=== PATIENT | female | born 1950 | race Caucasian/White ===

== ENCOUNTER → 2018-10-04 | Outpatient (CLI) | payer MEDICARE ==
[~2018-10-04] MED LIST: ALEN70TA6 PO; ALLO100T30 PO; ASPI-650 PO; BIOT1CAP3 PO; DIAZ5TAB PO; DOCU-131 PO; ENOX120S4 SQ; ERGO500017 PO; GABA300C10 PO; LISI1TAB5 PO; METO25TA35 PO; NAPR220T77 PO; OXYC-302 PO; REGADENOSON 0.4 MG/5 ML SYRINGE ONE; SIMV40TA3 PO; TRAM50TA2 PO; WARF1TAB PO; WARF7.5T PO-COUM
== END | disposition home or self-care (01) ==
LOC: CFH 12:47
PROVIDERS: ATTEND Family Medicine
DX: R94.31 Abnormal electrocardiogram [ECG] [EKG] (principal); I25.10 Atherosclerotic heart disease of native coronary artery without angina pectoris
CPT/HCPCS: 78452; 93017; A9502; J2785

== ENCOUNTER 2019-05-23 14:45 | Outpatient (CLI) | payer MEDICARE ==
[~2019-05-23 14:45] MED LIST changes: +LISI1TAB19 PO; -LISI1TAB5 PO; -REGADENOSON 0.4 MG/5 ML SYRINGE ONE; +SIMV40TA20 PO; -SIMV40TA3 PO
== END 2019-05-23 23:59 | disposition home or self-care (01) ==
LOC: CVU 14:45
PROVIDERS: ATTEND Internal Medicine Cardiovascular Disease
DX: I26.99 Other pulmonary embolism without acute cor pulmonale (principal); I11.9 Hypertensive heart disease without heart failure; E78.5 Hyperlipidemia, unspecified
CPT/HCPCS: 93306

== ENCOUNTER → 2019-10-02 | Outpatient (CLI) | payer MEDICARE ==
[~2019-10-02] MED LIST changes: -WARF1TAB PO; +WARF1TAB2 PO
== END | disposition home or self-care (01) ==
LOC: RAD 10:26
PROVIDERS: ATTEND Family Medicine
DX: E83.52 Hypercalcemia (principal)
CPT/HCPCS: 78070; A9500

== ENCOUNTER 2019-11-27 07:03 | Day surgery (SDC) | payer MEDICARE ==
[~2019-11-27] VITALS: Ht 167.6 cm; Wt 117.6 kg
[2019-11-27] MEDS ORDERED: SODIUM CHLORIDE 0.9% 1,000 ML IV SCH (07:54)
[2019-11-27] MEDS ORDERED: METO25TA35 PO (07:58)
[2019-11-27] MEDS ORDERED: FURO-93 PO (07:58)
[2019-11-27] MEDS ORDERED: CHOL10003 PO (07:58)
[2019-11-27] MEDS ORDERED: LISI-170 PO (07:58)
[2019-11-27 08:00] VITALS: BP 152/78
[2019-11-27 08:36] LABS: PROTHROMBIN TIME 10.3 Seconds (9.6-11.5)
[2019-11-27] MEDS ORDERED: NALOXONE 1 MG/ML, 2ML ONE (09:11)
[2019-11-27] MEDS ORDERED: MIDAZOLAM 1 MG/ML, 5ML ONE (09:11)
[2019-11-27] MEDS ORDERED: FENTANYL PF 100 MCG/2ML ONE (09:11)
[2019-11-27] MEDS ORDERED: FLUMAZENIL 0.1 MG/1 ML, 5ML ONE (09:11)
== END 2019-11-27 11:18 | disposition home or self-care (01) ==
LOC: OUT 07:03
PROVIDERS: ATTEND Internal Medicine Cardiovascular Disease
DX: Z45.89 Encounter for adjustment and management of other implanted devices (principal); I26.99 Other pulmonary embolism without acute cor pulmonale; I48.91 Unspecified atrial fibrillation; I10 Essential (primary) hypertension; E66.3 Overweight; Z68.41 Body mass index [BMI] 40.0-44.9, adult; Z79.01 Long term (current) use of anticoagulants; Z79.899 Other long term (current) drug therapy; Z86.718 Personal history of other venous thrombosis and embolism; Z88.2 Allergy status to sulfonamides
CPT/HCPCS: 36415; 37193; 85610; 99156; 99157; C1751; C1769; C1773; J2250; J3010; J7030; J2310